=== PATIENT | male | born 2005 | race Caucasian/White ===

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

== ENCOUNTER → 2024-07-05 11:46 | Outpatient (CLI) | payer OTHER, SELFPAY ==
[2024-07-05 12:59] LABS: Adenovirus Not Detected (Not Detect); B. parapertussis Not Detected (Not Detecte); Bordetella pertussis Not Detected (Not Detect); Chlamydophila pneumoniae Not Detected (Not Detect); Coronavirus 229E Not Detected (Not Detect); Coronavirus HKU1 Not Detected (Not Detect); Coronavirus NL 63 Not Detected (Not Detect); Coronavirus OC43 Not Detected (Not Detect); Human Metapneumovirus Not Detected (Not Detect); Human Rhinovirus/Enterovirus Not Detected (Not Detect); Influenza A Not Detected (Not Detect); Influenza B Not Detected (Not Detect); Mycoplasma pneumoniae Not Detected (Not Detect); Parainfluenza Virus 1 Not Detected (Not Detect); Parainfluenza Virus 2 Not Detected (Not Detect); Parainfluenza Virus 3 Not Detected (Not Detect); Parainfluenza Virus 4 Not Detected (Not Detect); Respiratory Syncytial Virus Detected (Not Detect); SARS- CoV-2 Not Detected (Not Detecte)
== END ==
PROVIDERS: PCP Family Medicine; Visit Provider Family Medicine
DX: J02.8 Acute pharyngitis due to other specified organisms (principal); B97.89 Other viral agents as the cause of diseases classified elsewhere
CPT/HCPCS: 87070; 87633

== ENCOUNTER → 2024-07-05 11:48 | Outpatient (CLI) | payer OTHER, SELFPAY ==
--- NOTE | 2024-07-05 11:49 | DI.RAD.S_ITS ---
PROCEDURE: XR CHEST 2V INDICATIONS: Sore throat and cough for 1mo TECHNIQUE: 2 views of the chest were acquired. COMPARISON: None. FINDINGS: Surgical changes and devices: None. Lungs and pleura: Lungs are clear. No pleural effusions or pneumothorax. Mediastinum: Mediastinal contours are normal. Heart size is normal. Bones and chest wall: No suspicious bony abnormalities. Soft tissues appear unremarkable. IMPRESSION: No acute cardiopulmonary abnormality is seen. Dictated by: Fady Chew M.D. on 07/05/2024 at 15:08 Approved by: Fady Chew M.D. on 07/05/2024 at 15:08
== END ==
PROVIDERS: PCP Family Medicine; Referring Provider Family Medicine; Visit Provider Family Medicine
DX: J02.8 Acute pharyngitis due to other specified organisms (principal); R05.9 Cough, unspecified; B97.89 Other viral agents as the cause of diseases classified elsewhere
CPT/HCPCS: 71046; 87070; 87633

== ENCOUNTER → 2025-01-10 11:59 | Outpatient (CLI) | payer OTHER, SELFPAY ==
[2025-01-10 12:48] LABS: Influenza A - CEPHEID Flu A NEGATIVE (NEGATIVE); Influenza B - CEPHEID Flu B NEGATIVE (NEGATIVE)
[2025-01-10 13:08] LABS: COVID-19 CEPHEID 4-PLEX PCR Negative (Negative)
== END ==
PROVIDERS: PCP Family Medicine; Visit Provider Nurse Practitioner Family
DX: R50.9 Fever, unspecified (principal)
CPT/HCPCS: 87070; 87637